=== PATIENT | male | born 1985 | race American Indian/Alaskan Native ===

== ENCOUNTER 2019-07-30 19:52 | Emergency (ER) | payer SELFPAY ==
[2019-07-30] MEDS ORDERED: ACETAMINOPHEN 325 MG TAB ONE (20:17)
[2019-07-30] MEDS ORDERED: ACETAMINOPHEN 325 MG TAB PO ONE (20:21)
[2019-07-30] MEDS ORDERED: ONDANSETRON 4 MG/2 ML INJ IV ONE (20:31)
[2019-07-30] MEDS ORDERED: MORPHINE 4 MG/1 ML INJ IV ONE (20:31)
[2019-07-30] MEDS ORDERED: fentaNYL 100 MCG/2 ML INJ IV ONE (20:43)
[2019-07-30 20:54] LABS: Basophils % (Auto) 0.2 % (0.0-1.8); Eosinophils % (Auto) 0.4 % (0.0-4.3); Hematocrit 36.4 % (35.5-45.6); Hemoglobin 12.2 gm/dl (11.8-15.2); Lymphocytes # (Auto) 1.9 K/mm3 (1.2-5.4); Lymphocytes % (Auto) 21.6 % (13.4-35.0); Mean Corpuscular HGB Conc 34 % (32-34); Mean Corpuscular Volume 92 fl (84-94); Monocytes # (Auto) 0.5 K/mm3 (0.0-0.8); Monocytes % (Auto) 5.7 % (0.0-7.3); Platelet Count 253 K/mm3 (140-440); Red Blood Count 3.95 M/mm3 (3.65-5.03); Red Cell Distribution Width 13.1 % (13.2-15.2)
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
[2019-07-30 21:06] LABS: INR 0.87 (0.87-1.13)
[2019-07-30 21:07] LABS: Partial Thromboplastin Time 23.8 Sec. (24.2-36.6)
[2019-07-30 21:08] LABS: Alanine Aminotransferase 46 units/L (7-56); Albumin 4.2 g/dL (3.9-5); BUN/Creatinine Ratio 12; Blood Urea Nitrogen 11 mg/dL (9-20); Hemolysis Index 7
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
[2019-07-30 22:39] VITALS: BP 120/69
== END 2019-07-30 23:24 | disposition home or self-care (01) ==
LOC: ED 19:52
DX: S32.010A Wedge compression fracture of first lumbar vertebra, initial encounter for closed fracture (principal); S32.030A Wedge compression fracture of third lumbar vertebra, initial encounter for closed fracture; Z98.890 Other specified postprocedural states; Z88.2 Allergy status to sulfonamides; X58.XXXA Exposure to other specified factors, initial encounter; Y93.89 Activity, other specified; Y92.89 Other specified places as the place of occurrence of the external cause; Y99.8 Other external cause status
CPT/HCPCS: 36415; 70450; 71275; 72125; 72128; 72131; 74177; 80053; 85025; 85610; 85730; 96374; 96375; 99284; J2270; J2405; J3010; Q9967